=== PATIENT | male | born 1955 | race Caucasian/White ===

== ENCOUNTER 2021-01-19 20:27 | Emergency (ER) | payer SELFPAY ==
[~2021-01-19 20:27] MED LIST: Iopamidol 370 76% 100 ML VIAL ONE
[2021-01-19] MEDS ORDERED: Aspirin Chewable 81 MG TAB ONE (21:00)
[2021-01-19] MEDS ORDERED: Nitroglycerin 0.4 MG TAB 1 EACH ONE ×2 (21:00→21:59)
[2021-01-19 21:50] LABS: #Basophils 0.1 thou/uL (0.0-0.2); #Eosinphils 0.2 thou/uL (0.0-0.7); #Lymphocytes 1.7 thou/uL (1.20-3.40); #Neutrophils 15.9 thou/uL (1.40-6.50); %Basophils 0.4 % (0.0-1.0); %Monocytes 5.3 % (0.0-10.0); %Neutrophils 84.2 % (42.0-75.0); Hemoglobin 15.3 g/dL (14.0-18.0); Mean Corpuscular HGB CONC 32.2 g/dL (32.0-36.0); Mean Corpuscular Hemoglobin 30.3 pg (27.0-31.0); Mean Corpuscular Volume 94.2 fL (78.0-98.0); Mean Platelet Volume 6.9 fL (7.4-10.4); Platelet Count 330 thou/uL (130-400); RBC Distribution Width 13.8 % (11.5-14.5); Red Blood Cell (RBC) Count 5.03 mill/uL (4.70-6.10); White Blood Cell (WBC) Count 18.9 thou/uL (4.8-10.8)
[2021-01-19 22:05] LABS: ALT (SGPT) 17 U/L (8-55); AST (SGOT) 16 U/L (5-34); Albumin 4.3 g/dL (3.4-4.8); Alkaline Phosphatase 123 U/L (40-110); Anion Gap 15 mmol/L (10-20); BUN (Urea Nitrogen) 20 mg/dL (8.4-25.7); Bilirubin, Total 0.4 mg/dL (0.2-1.2); CK (CPK) 72 U/L (30-200); Calc. Creatinine Clearance 0 mL/min (70-130); Calcium 9.4 mg/dL (7.8-10.44); Carbon Dioxide 28 mmol/L (23-31); Chloride 101 mmol/L (98-107); Globulin 2.8 g/dL (2.4-3.5); Glucose 134 mg/dL (80-115); Lipase 62 U/L (8-78); Potassium 4.1 mmol/L (3.5-5.1); Protein, Total 7.1 g/dL (5.8-8.1); Sodium 140 mmol/L (136-145)
[2021-01-19] MEDS ORDERED: Morphine 2 MG/ML VIAL ONE (23:39)
[2021-01-19] MEDS ORDERED: Ondansetron PF 4 MG/2 ML Vial ONE (23:39)
[2021-01-19] MEDS ORDERED: Nitroglycerin 2% Ointment 1 INCH/1 GM Packet ONE (23:46)
[2021-01-20 00:45] LABS: Troponin I 0.355 ng/mL (< 0.028)
[2021-01-20] MEDS ORDERED: Enoxaparin Sodium 100 MG/ML SYRINGE ONE (01:23)
[2021-01-20] MEDS ORDERED: Morphine 2 MG/ML VIAL ONE (01:55)
[2021-01-20 02:54] LABS: SARS-CoV-2 NAA Rapid Test Not Detected (NotDetected)
== END 2021-01-20 02:27 | disposition short-term general hospital (02) ==
LOC: BURERS 20:27
DX: I21.4 Non-ST elevation (NSTEMI) myocardial infarction (principal); I10 Essential (primary) hypertension; R11.0 Nausea; F17.210 Nicotine dependence, cigarettes, uncomplicated; Z20.822 Contact with and (suspected) exposure to COVID-19
CPT/HCPCS: 71045; 71275; 74174; 80053; 82550; 83690; 84484; 85025; 93005; 96372; 96374; 96375; 96376; J1650; J2270; J2405; Q9967; U0002